=== PATIENT | male | born 1950 | race Caucasian/White ===

== ENCOUNTER → 2016-12-11 | Outpatient (CLI) | payer OTHER ==
[~2016-12-11] MED LIST: ACYC400T PO; ALLO300 PO; DIATRIZOATE MEGLUM/DIATRIZOATE SOD 120 ML BTL (for RAD DIAG) RECTAL ONE; FURO20 PO; HYDR-4197; ONDA4 PO; PROT40TA PO; SENN187 PO; TRAM50 PO; VENTAER INH; WALKER ROLLING; [UNRECOGNIZED DRUG - CODE] PO
--- NOTE | 2016-12-11 11:43 | RADRPT ---
EXAM DATE/TIME: 12/11/2016 10:52 [facility] COMPARISON: No previous studies available for comparison. INDICATIONS : Fecal impaction. FLUORO TIME: 0.5 minutes IMAGE COUNT: 7 CONTRAST: 1. [facility] MEDICAL HISTORY : Hirschsprungs disease. SURGICAL HISTORY : Loop Colostomy. Colon resection. ENCOUNTER: Initial ACUITY: 7 - 11 months PAIN SCORE: 0/10 LOCATION: Bilateral abdomen. FINDINGS: Preliminary film is unremarkable except for extensive stool and colostomy site is seen on the left. Under fluoroscopic guidance a Gastrografin enema was performed with free flow of contrast to the colo stomy site on the left side and back filled with contrast. There is extensive stool in the patient's colon. CONCLUSION: Therapeutic Gastrografin enema. Jesus Peña MD on December 11, 2016 at 11:40 Board Certified Radiologist. This report was verified electronically.
== END ==
LOC: HRAD 10:25
PROVIDERS: ATTEND Colon & Rectal Surgery
DX: K56.49 Other impaction of intestine (principal)
CPT/HCPCS: 74270; Q9963

== ENCOUNTER → 2017-01-09 | Day surgery (SDC) | payer OTHER ==
[~2017-01-09] VITALS: Ht 190.5 cm; Wt 70.6 kg
[~2017-01-09] MED LIST changes: +*morphine SULFATE 8 MG/ML PERIprocedure ONLY ONE; -ACYC400T PO; -ALLO300 PO; +CHLORHEXIDINE GLUCONATE 2 % 1 PACK (2 CLOTHS) TOPICAL PRN; -DIATRIZOATE MEGLUM/DIATRIZOATE SOD 120 ML BTL (for RAD DIAG) RECTAL ONE; +DO NOT ADM ANY ANTICOAGULANT DRUGS PRN; -FURO20 PO; -HYDR-4197; +INSULIN HUMAN REGULAR 1,000 UNITS/10 ML VIAL SQ PRN; +LACTATED RINGER'S 1000 ML IV PRN; +METOPROLOL TARTRATE 25 MG TAB PO PRN; +MIDAZOLAM HCL 2 MG/2 ML VIAL ONE; -ONDA4 PO; +POVIDONE IODINE 5% (ANTISEPSIS KIT) 4 APPLICATIONS EACH NARE PRN; +PROPOFOL 200 MG/20 ML AMP IV ONE; -PROT40TA PO; -SENN187 PO; +SODIUM CHLORID 0.9% 500 ML IV PRN; -TRAM50 PO; +TRAM50TA PO; +TYLE325T PO; +TYLENOL PM PO; -VENTAER INH; -WALKER ROLLING; -[UNRECOGNIZED DRUG - CODE] PO
[2017-01-09 12:11] VITALS: BP 108/67; PULSE 73; RESP 18; TEMP 98.4; O2SAT 98
[2017-01-09 12:41] LABS: AUTOMATED NEUTROPHIL # 5.7 TH/MM3 (1.8-7.7); BASOPHIL # 0.1 TH/MM3 (0-0.2); BASOPHIL % 0.7 % (0.0-2.0); EOSINOPHIL # 0.2 TH/MM3 (0-0.4); EOSINOPHIL % 3.2 % (0.0-4.0); HEMATOCRIT 40.3 % (39.0-51.0); HEMO FLAGS DIFF FINAL; LYMPHOCYTE # 0.9 TH/MM3 (1.0-4.8); MEAN CELL VOLUME 87.3 FL (80.0-100.0); MEAN CORPUSCULAR HEMOGLOBIN 28.6 PG (27.0-34.0); MEAN CORPUSCULAR HGB CONC 32.7 % (32.0-36.0); MONO % 6.1 % (0.0-8.0); PLATELET COUNT 250 TH/MM3 (150-450); RED BLOOD COUNT 4.62 MIL/MM3 (4.50-5.90); RED CELL DISTRIBUTION WIDTH 16.3 % (11.6-17.2); WHITE BLOOD COUNT 7.3 TH/MM3 (4.0-11.0)
--- NOTE | 2017-01-09 13:28 | PD.HP.UP ---
H&P Update Note The Pre-Admit History and Physical Examination regarding the above named patient was reviewed (including, but not limited to, vital signs, heart, lungs, co-morbid conditions), and upon re-examination it is noted that: the patient's condition has not significantly changed since the last examination. Ghassan Glover MD Jan 09, 2017 13:28
--- NOTE | 2017-01-09 15:22 | EKG ---
Date Performed: 01/09/2017 Time Performed: 11:51:46 PTAGE: 66 years EKG: Sinus rhythm WITH SINUS ARRHYTHMIA Compared to previous tracing, the 2:1 AV block has resolved NORMAL ECG PREVIOUS TRACING : 06/09/2015 10.25 DOCTOR: Dakota Delgado Interpretating Date/Time 01/09/2017 15:20:34
[2017-01-09 16:11] VITALS: BP 105/67; PULSE 66; RESP 24; TEMP 97; O2SAT 99
--- NOTE | 2017-01-11 18:40 | MP ---
cc: SHAYNE GLOVER M.D. DATE OF SURGERY: 01/09/2017. PREOPERATIVE DIAGNOSIS: Fecal impaction POSTOPERATIVE DIAGNOSIS: Fecal impaction. OPERATIVE PROCEDURE PERFORMED: 1. Disimpaction. 2. Flexible sigmoidoscopy. SURGEON: Shayne Glover M.D. ANESTHESIA: Monitored anesthesia care. OPERATIVE FINDINGS: This patient developed a fecal impaction about a year ago after receiving chemotherapy. His case is complicated by the fact that he had Hirschsprung's disease at a young age, and at age 18 underwent Duhamel procedure at the [facility] by Dr. Michael Agudelo. When he developed a fecal impaction, there was a blind limb to his pouch, which became fecally impacted and could not be dislodged with enemas. He was referred to the [facility] who did a loop sigmoid colostomy but never really disimpacted him. He is now back to me for the second time for disimpaction. I was able to get half of the stool out about two weeks ago and today I was able to get the remainder of the stool out. DESCRIPTION OF THE PROCEDURE IN DETAIL: The patient was placed on table in the supine position. After adequate monitored anesthesia care, the area was lubricated and fecal impaction was palpated. It was quite a large hard inspissated ball of stool. I was able to break it up with the Yankauer suction tip for the most part and then scoop it out with a spoon-shaped instrument and after lengthy disimpaction, was able to finally irrigate the remainder of the stool out with saline solution. A flexible sigmoidoscopy was done showing the pouch and there was no obvious trauma or injury to the rectal pouch and I could not advance the scope up into the more proximal colon mainly because he could not hold air as the air went up into his colostomy bag and also out the anus. I know that the connection between the colostomy and the rectum are intact because of the air and the enema fluid has passed through this area previously. At termination of procedure, the patient left the operating room in good condition and I will follow him up in the office and eventually close his colostomy. MD OPAL Hernadez/JAIME /2:55 PM /6:31 PM
== END | disposition home or self-care (01) ==
LOC: HSDC 11:26
PROVIDERS: ATTEND Colon & Rectal Surgery
DX: K56.41 Fecal impaction (principal); Q43.1 Hirschsprung's disease; M54.2 Cervicalgia; M54.9 Dorsalgia, unspecified; F17.290 Nicotine dependence, other tobacco product, uncomplicated; Z93.3 Colostomy status; Z01.810 Encounter for preprocedural cardiovascular examination; Z86.718 Personal history of other venous thrombosis and embolism; Z85.72 Personal history of non-Hodgkin lymphomas; Z92.21 Personal history of antineoplastic chemotherapy; Z79.891 Long term (current) use of opiate analgesic
CPT/HCPCS: 00902; 45330; 45915; 85025; 93005; J2250; J2270; J3010; J7120

== ENCOUNTER → 2017-02-13 | Outpatient (CLI) | payer OTHER ==
[~2017-02-13] MED LIST changes: -*morphine SULFATE 8 MG/ML PERIprocedure ONLY ONE; -CHLORHEXIDINE GLUCONATE 2 % 1 PACK (2 CLOTHS) TOPICAL PRN; -DO NOT ADM ANY ANTICOAGULANT DRUGS PRN; -INSULIN HUMAN REGULAR 1,000 UNITS/10 ML VIAL SQ PRN; -LACTATED RINGER'S 1000 ML IV PRN; -METOPROLOL TARTRATE 25 MG TAB PO PRN; -MIDAZOLAM HCL 2 MG/2 ML VIAL ONE; -POVIDONE IODINE 5% (ANTISEPSIS KIT) 4 APPLICATIONS EACH NARE PRN; -PROPOFOL 200 MG/20 ML AMP IV ONE; -SODIUM CHLORID 0.9% 500 ML IV PRN; -TYLE325T PO
--- NOTE | 2017-02-16 16:03 | RADRPT ---
EXAM DATE/TIME: 02/13/2017 12:01 [facility] COMPARISON: CT THORAX W CONTRAST, June 06, 2015, 23:02. INDICATIONS : Evaluate for penumonia, pneumothorax, or commnicable disease. Pre op for colostomy reversal. MEDICAL HISTORY : Gastroesophageal reflux disease. Shingles. Lymphoma. UTI. Chemotherapy. SURGICAL HISTORY : Colostomy. Cholecystectomy. Kyphoplasty. Rotator cuff. Bowel resection. ENCOUNTER: Initial ACUITY: 1 day PAIN SCORE: 0/10 LOCATION: chest FINDINGS: Frontal and lateral views of the chest demonstrate a normal-sized cardiac silhouette. Left chest wall [id number]-[id number] is present with distal tip in the superior vena cava. The lungs are hyperinflated with a large retrosternal airspace. No pleural effusion, airspace consolidation, or pneumothorax is ident ified. Bones and soft tissues demonstrate no acute finding. There are degenerative changes of the tho racic spine and there has been prior kyphoplasty. CONCLUSION: No acute cardiopulmonary abnormality is identified. Background lung changes are characteristic of obs tructive airways disease/emphysema. Ghassan Marshall MD on February 16, 2017 at 15:59 Board Certified Radiologist. This report was verified electronically.
== END ==
LOC: CPRE 10:24
PROVIDERS: ATTEND Colon & Rectal Surgery
DX: Z01.811 Encounter for preprocedural respiratory examination (principal); K94.09 Other complications of colostomy
CPT/HCPCS: 71020

== ENCOUNTER 2017-02-17 11:18 | Inpatient (IN) | payer OTHER, MEDICARE ==
[~2017-02-17] VITALS: Ht 190.5 cm; Wt 72.5 kg
[2017-02-17] VITALS (7 sets, daily range): BP systolic 113–149; BP diastolic 56–62; PULSE 72–91; RESP 16–18; TEMP 98–98.8; O2SAT 94–96
[2017-02-17] MEDS ORDERED: NEOSTIGMINE 3 MG/3 ML SYR IV ONE (12:00)
[2017-02-17] MEDS ORDERED: PROPOFOL 200 MG/20 ML AMP IV ONE (12:00)
[2017-02-17] MEDS ORDERED: MIDAZOLAM HCL 2 MG/2 ML VIAL IV ONE (12:00)
[2017-02-17] MEDS ORDERED: ROCURONIUM INJ 50 MG/5 ML SYRINGE IV PUSH ONE (12:00)
[2017-02-17] MEDS ORDERED: ONDANSETRON HCL 4 MG/2 ML VIAL IV PUSH ONE (12:00)
[2017-02-17] MEDS ORDERED: GLYCOPYRROLATE 1 MG/5 ML SYRINGE IV PUSH ONE (12:00)
[2017-02-17] MEDS ORDERED: LIDOCAINE HCL 1% PF 5 ML AMPULE OTHER ONE (12:00)
[2017-02-17] MEDS: LACTATED RINGER'S 1000 ML IV PRN (12:15)
[2017-02-17] MEDS ORDERED: ceFAZolin INJ 1,000 MG VIAL ONE (12:28)
[2017-02-17] MEDS ORDERED: ALVIMOPAN 12 MG CAPSULE ONE (12:28)
[2017-02-17] MEDS ORDERED: SODIUM CHLORIDE 0.9% INJ 100 ML ONE (12:28)
[2017-02-17] MEDS ORDERED: metroNIDAZOLE 500 MG INJ 100 ML IV ONE (12:28)
[2017-02-17] MEDS ORDERED: CHLORHEXIDINE GLUCONATE 2 % 1 PACK (2 CLOTHS) TOPICAL PRN (12:30)
[2017-02-17] MEDS ORDERED: POVIDONE IODINE 5% (ANTISEPSIS KIT) 4 APPLICATIONS EACH NARE PRN (12:30)
[2017-02-17] MEDS ORDERED: METOPROLOL TARTRATE 25 MG TAB PO PRN (12:30)
[2017-02-17] MEDS ORDERED: INSULIN HUMAN REGULAR 1,000 UNITS/10 ML VIAL SQ PRN (12:30)
[2017-02-17] MEDS ORDERED: SODIUM CHLORID 0.9% 500 ML IV PRN (12:30)
[2017-02-17] MEDS: ceFAZolin 1,000 MG/NS 100 ML IV SCH ×4 (12:30→12:46)
[2017-02-17] MEDS: METRONIDAZOLE 500 MG/100 ML ISONTONIC SOLN IV SCH ×2 (12:45→12:46)
[2017-02-17] MEDS ORDERED: ALVIMOPAN 12 MG CAPSULE - On Call PO SCH (12:45)
[2017-02-17] MEDS ORDERED: DEXT 5%-NACL 0.9% 1000 ML INJ 1,000 ML IV SCH (13:00)
--- NOTE | 2017-02-17 13:01 | PD.HP.UP ---
H&P Update Note The Pre-Admit History and Physical Examination regarding the above named patient was reviewed (including, but not limited to, vital signs, heart, lungs, co-morbid conditions), and upon re-examination it is noted that: the patient's condition has not significantly changed since the last examination. Ghassan Glover MD Feb 17, 2017 13:01
[2017-02-17] MEDS ORDERED: FAMOTIDINE 20 MG/2 ML VIAL ONE (13:30)
[2017-02-17] MEDS ORDERED: MIDAZOLAM HCL 2 MG/2 ML VIAL ONE (13:30)
[2017-02-17] MEDS ORDERED: ACETAMINOPHEN 1000 MG/100 ML 100 ML IV ONE (13:30)
[2017-02-17] MEDS ORDERED: ZOLPIDEM TARTRATE 5 MG TAB PO PRN (16:00)
[2017-02-17] MEDS ORDERED: DO NOT ADM ANY ANTICOAGULANT DRUGS PRN (16:00)
[2017-02-17] MEDS ORDERED: BENZOCAINE 6 MG/MENTHOL 10 MG LOZENGE BUCCAL PRN (16:00)
[2017-02-17] MEDS ORDERED: POTASSIUM CHLOR 20 MEQ PREMIX 100 ML IV PRN (16:00)
[2017-02-17] MEDS ORDERED: POTASSIUM CHLOR 40 MEQ PREMIX 100 ML IV PRN (16:00)
[2017-02-17] MEDS ORDERED: ACETAMINOPHEN/HYDROcodone 325 MG/5 MG TAB PO PRN (16:00)
[2017-02-17] MEDS ORDERED: SODIUM CHLORIDE 0.9% FLUSH 10 ML FLUSH IV FLUSH PRN (16:00)
[2017-02-17] MEDS ORDERED: ENALAPRILAT 1.25 MG/ML VIAL IV PRN (16:00)
[2017-02-17] MEDS ORDERED: NALOXONE HCL 0.4 MG/ML AMP IV PUSH PRN (16:00)
[2017-02-17] MEDS ORDERED: KETOROLAC TROMETHAMINE 30 MG/ML (IVP) VIAL IVP PRN (16:00)
[2017-02-17] MEDS ORDERED: Post-op Orders (for Pharmacy) MISC XX ONE (16:00)
[2017-02-17] MEDS ORDERED: *MEPERIDINE 25 MG INJ VIAL PERIprocedural Use ONLY ONE (16:04)
[2017-02-17] MEDS ORDERED: *morphine SULFATE 8 MG/ML PERIprocedure ONLY ONE ×2 (16:14→16:30)
[2017-02-17] MEDS ORDERED: *ONDANSETRON 4 MG VIAL PERIprocedural Use ONLY ONE (16:18)
[2017-02-17 16:31] LABS: AUTOMATED NEUTROPHIL # 13.8 TH/MM3 (1.8-7.7); BASOPHIL # 0.1 TH/MM3 (0-0.2); BASOPHIL % 0.4 % (0.0-2.0); EOSINOPHIL # 0.1 TH/MM3 (0-0.4); EOSINOPHIL % 0.4 % (0.0-4.0); HEMATOCRIT 43.7 % (39.0-51.0); HEMO FLAGS DIFF FINAL; LYMPHOCYTE # 1.3 TH/MM3 (1.0-4.8); MEAN CELL VOLUME 89.6 FL (80.0-100.0); MEAN CORPUSCULAR HEMOGLOBIN 28.1 PG (27.0-34.0); MEAN CORPUSCULAR HGB CONC 31.4 % (32.0-36.0); MONO % 4.4 % (0.0-8.0); NEUT % 86.8 % (16.0-70.0); PLATELET COUNT 251 TH/MM3 (150-450); RED BLOOD COUNT 4.88 MIL/MM3 (4.50-5.90); WHITE BLOOD COUNT 15.9 TH/MM3 (4.0-11.0)
[2017-02-17 17:00] LABS: BICARBONATE 23.1 MEQ/L (21.0-32.0); POTASSIUM 3.8 MEQ/L (3.5-5.1)
[2017-02-17] MEDS ORDERED: *PROMETHAZINE 25 MG/ML VIAL PERIprocedural use ONLY ONE (17:02)
[2017-02-17] MEDS: D5-LR + KCL 20 MEQ INJ 1,000 ML IV SCH ×2 (17:37→22:13)
[2017-02-17] MEDS: MORPHINE SULFATE 30 MG/30 ML PCA IV SCH (17:39)
[2017-02-17] MEDS: METOCLOPRAMIDE HCL 10 MG/2 ML VIAL IVS SCH ×2 (18:00→23:13)
[2017-02-17] MEDS: FUROSEMIDE 20 MG/2 ML VIAL IV SCH (20:17)
[2017-02-17] MEDS: metroNIDAZOLE 500 MG INJ 100 ML IV SCH (20:17)
[2017-02-17] MEDS: SODIUM CHLORIDE 0.9% FLUSH 10 ML FLUSH IV FLUSH SCH (20:17)
[2017-02-17] MEDS: PCA - TOTAL MG MORPHINE DELIVERED PER SHIFT SCH (21:36)
[2017-02-18] VITALS (18 sets, daily range): BP systolic 94–113; BP diastolic 48–59; PULSE 66–82; RESP 16–18; TEMP 97.8–99.3; O2SAT 91–96
[2017-02-18] MEDS: D5-LR + KCL 20 MEQ INJ 1,000 ML IV SCH ×4 (03:01→20:53)
[2017-02-18] MEDS: metroNIDAZOLE 500 MG INJ 100 ML IV SCH ×2 (04:19→12:18)
[2017-02-18] MEDS: MORPHINE SULFATE 30 MG/30 ML PCA IV SCH (05:20)
[2017-02-18] MEDS: METOCLOPRAMIDE HCL 10 MG/2 ML VIAL IVS SCH ×4 (05:23→23:47)
[2017-02-18] MEDS: PCA - TOTAL MG MORPHINE DELIVERED PER SHIFT SCH ×3 (05:43→20:53)
[2017-02-18 06:56] LABS: AUTOMATED NEUTROPHIL # 9.2 TH/MM3 (1.8-7.7); BASOPHIL % 0.4 % (0.0-2.0); EOSINOPHIL % 0.1 % (0.0-4.0); HEMATOCRIT 37.5 % (39.0-51.0); HEMO FLAGS DIFF FINAL; LYMPH % 6.3 % (9.0-44.0); LYMPHOCYTE # 0.7 TH/MM3 (1.0-4.8); MEAN CELL VOLUME 87.5 FL (80.0-100.0); MEAN CORPUSCULAR HEMOGLOBIN 28.9 PG (27.0-34.0); MONO % 7.7 % (0.0-8.0); NEUT % 85.5 % (16.0-70.0); PLATELET COUNT 197 TH/MM3 (150-450); RED BLOOD COUNT 4.29 MIL/MM3 (4.50-5.90); RED CELL DISTRIBUTION WIDTH 15.1 % (11.6-17.2); WHITE BLOOD COUNT 10.8 TH/MM3 (4.0-11.0)
[2017-02-18 07:11] LABS: BICARBONATE 26.4 MEQ/L (21.0-32.0)
--- NOTE | 2017-02-18 08:53 | HHI.PR ---
Subjective Remarks No N or V. No BMs. Urine clearer. Objective Vital Signs Date Time Temp Pulse Resp B/P (MAP) Pulse Ox O2 Delivery O2 Flow Rate FiO2 02/18/17 08:03 97.8 76 18 102/48 (66) 95 02/18/17 08:00 77 02/18/17 07:00 75 02/18/17 06:05 16 02/18/17 06:00 79 02/18/17 05:43 16 02/18/17 05:20 16 02/18/17 05:00 76 02/18/17 04:00 78 02/18/17 03:00 78 02/18/17 03:00 99.3 82 16 113/53 (73) 96 02/18/17 02:00 80 02/18/17 01:00 80 02/18/17 00:00 79 02/17/17 23:05 98.8 81 16 113/56 (75) 96 02/17/17 23:00 75 02/17/17 22:00 16 02/17/17 22:00 75 02/17/17 21:36 16 02/17/17 21:00 80 02/17/17 20:00 98.7 84 16 125/57 (79) 96 02/17/17 20:00 82 02/17/17 19:00 72 02/17/17 18:34 18 02/17/17 18:29 98.0 91 18 149/62 (91) 94 02/17/17 18:00 72 13 133/61 (85) 98 Room Air 02/17/17 17:39 22 02/17/17 17:30 69 22 130/56 (80) 98 Room Air 02/17/17 17:00 66 15 121/58 (79) 98 Room Air 02/17/17 16:45 62 14 137/64 (88) 99 Room Air 02/17/17 16:30 64 15 126/58 (80) 99 Room Air 02/17/17 16:15 66 15 111/55 (73) 99 Room Air 02/17/17 16:00 98.1 67 17 153/63 (93) 100 Room Air I/O 02/17/17 02/17/17 02/17/17 02/18/17 02/18/17 02/18/17 07:00 15:00 23:00 07:00 15:00 23:00 Intake Total 100 ml 1406 ml 2088 ml Output Total 250 ml 1400 ml Balance 100 ml 1156 ml 688 ml Intake Oral 0 ml IV Total 100 ml 506 ml 2088 ml Other 900 ml Output Urine Total 200 ml 1400 ml Estimated Blood Loss 50 ml # Bowel Movements 0 Result Diagram: 02/18/1762402/18/17624 Objective Remarks VS-S Abd: flat,soft,dressings dry I&Os and Labs-OK Assessment and Plan Assessment and Plan Stable POD#1 Transfer, ambulate CLD Ghassan Glover MD Feb 18, 2017 08:53
[2017-02-18] MEDS ORDERED: ALVIMOPAN 12 MG CAPSULE - Post-op dosing PO SCH (09:00)
[2017-02-18] MEDS: ALVIMOPAN 12 MG CAPSULE PO SCH ×2 (09:18→20:51)
[2017-02-18] MEDS: FUROSEMIDE 20 MG/2 ML VIAL IV SCH ×2 (09:18→20:52)
[2017-02-18] MEDS: SODIUM CHLORIDE 0.9% FLUSH 10 ML FLUSH IV FLUSH SCH ×2 (09:20→20:52)
[2017-02-18] MEDS: PANTOPRAZOLE SODIUM 40 MG VIAL IVP SCH (09:20)
--- NOTE | 2017-02-18 09:35 | MP ---
cc: SHAYNE GLOVER M.D., ELIZABETH M. MD DATE OF SURGERY: 02/17/2017 PREOPERATIVE DIAGNOSIS Sigmoid loop colostomy. POSTOPERATIVE DIAGNOSIS Sigmoid loop colostomy. PROCEDURE 1. Partial sigmoid resection with closure of sigmoid loop colostomy. 2. Disimpaction of rectum. 3. Mobilization of the splenic flexure. SURGEON Dr. Glover. COMPUTATIONAL PHYSICIST SURGEON Dr. Lozano. ESTIMATED BLOOD LOSS 50 cc. OPERATIVE FINDINGS This patient has a complex history. Approximately 50 years ago he was diagnosed with Hirschsprung's disease at the age of 18 and underwent a Duhamel procedure by Dr. Michael Agudelo at the [facility]. Since that time he had done well and his constipation was well-controlled. 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 When he became impacted it was impossible for him to be disimpacted and he was sent to the [facility] and they did a laparoscopic colostomy thinking that he would be able to be disimpacted; however, with this Duhamel pouch in his pelvis they were unable to clean him out. That was done in June 2016. He now comes to me for closure of his colostomy and disimpaction. I disimpacted him a couple of times of all the hard fecal material and then of all the soft fecal material today. A bowel prep had been done prior to this and then the loop sigmoid colostomy was taken down and the colostomy was closed with a functional end-to-end HARPREET anastomosis. Exploration of the abdominal cavity revealed that the liver was palpably normal as was the remainder of the colon. However, the small bowel was abnormal and at the terminal ileum region appeared to have fat wrapping and thickening and Crohn's disease. There was no obstruction there and there was no chronic obstruction seen. There seemed to be 2-3 areas of skip areas several centimeters in length each with the terminal ileum spared just above an area of handsewn anastomosis. The remainder of the colon as I said was palpably normal. I did mobilize the bladder up off of the Duhamel pouch and sigmoid colon and I was able to palpate the pouch but I did not expose it fully so that I did not injure it. Dr. Lozano did irrigations of the rectum and the pouch from below with two liters of saline solution and all the stool that was left over in the pouch was squeezed out. OPERATIVE TECHNIQUE The patient was placed on the table in the supine position. After adequate general endotracheal anesthesia the legs were placed in the perineal lithotomy position. The abdomen and perineum were prepped and draped in the usual manner. A midline incision was made in his previous midline from the pubis up to above the umbilicus and carried down through the linea alba and the peritoneal cavity was entered with the above-mentioned findings. There was not much in the way of adhesions except some omentum and this was easily mobilized from the anterior abdominal wall. The bladder was mobilized up off of the sigmoid and the Duhamel pouch and I was able to palpate the pouch fully. Dr. Lozano then went below and irrigated the pouch with a bulb syringe using two liters of saline solution, fully washing out the pouch of all the stool left over. Next, the sigmoid colon was mobilized. An elliptical incision was made transversely around the stoma site and it was taken down from the abdominal wall. None of the sigmoid vessels were divided and the sigmoid was divided proximal and distal to the stoma with an Ethicon HARPREET-55 stapling device. Next, the anastomosis was carried out along the antimesenteric border of the sigmoid colon using an Ethicon HARPREET stapling device and then two seromuscular sutures were placed and then the appendices epiploicae were sutured to each other to take any tension off the apex of the anastomosis. The small opening in the mesentery was approximated with a running 3-0 Vicryl suture. It should be mentioned that the full sigmoid and descending colon was mobilized as was the splenic flexure to allow enough length for closure. We again looked at the terminal ileum and decided to leave it since it was not obstructed nor chronically obstructed. It did, however, appear to be Crohn's disease. It did not appear to be lymphoma. The abdominal cavity was then irrigated thoroughly with a liter of saline solution and aspirated dry. Hemostasis was maintained throughout with electrocautery. The bowels were replaced in the abdominal cavity in an final rail cutter manner. The abdominal cavity was then closed after mobilizing the midline fascia from the subcutaneous tissue with electrocautery. It should be mentioned that the stoma site was closed in two layers using a single stranded #1 PDS and the midline was closed with a double-stranded #1 PDS in a simple running manner. Once this was done the subcutaneous tissue was irrigated thoroughly with a liter of saline solution and the skin was closed with skin lenore. Because of the takedown of the colostomy subcuticular suture was not used. Dressing was applied. Sponge, needle and instrument counts were reported as correct. The estimated blood loss was 50 cc. The patient tolerated the procedure well and left the operating room in good condition. MD OPAL Hernadez/BROOKE /4:10 PM /9:08 AM
[2017-02-19 00:35] VITALS: BP 112/58; PULSE 67; RESP 18; TEMP 99.2; O2SAT 93
[2017-02-19 04:00] VITALS: BP 116/57; PULSE 80; RESP 17; TEMP 99.3; O2SAT 94
[2017-02-19 04:49] LABS: AUTOMATED NEUTROPHIL # 7.4 TH/MM3 (1.8-7.7); BASOPHIL # 0.1 TH/MM3 (0-0.2); BASOPHIL % 0.9 % (0.0-2.0); EOSINOPHIL # 0.1 TH/MM3 (0-0.4); EOSINOPHIL % 0.8 % (0.0-4.0); HEMO FLAGS DIFF FINAL; LYMPH % 9.4 % (9.0-44.0); LYMPHOCYTE # 0.9 TH/MM3 (1.0-4.8); MEAN CORPUSCULAR HEMOGLOBIN 28.2 PG (27.0-34.0); MONO % 7.9 % (0.0-8.0); PLATELET COUNT 176 TH/MM3 (150-450); RED BLOOD COUNT 4.21 MIL/MM3 (4.50-5.90); RED CELL DISTRIBUTION WIDTH 15.6 % (11.6-17.2); WHITE BLOOD COUNT 9.1 TH/MM3 (4.0-11.0)
[2017-02-19 05:12] LABS: BICARBONATE 24.8 MEQ/L (21.0-32.0); POTASSIUM 4.1 MEQ/L (3.5-5.1)
[2017-02-19] MEDS: PCA - TOTAL MG MORPHINE DELIVERED PER SHIFT SCH ×2 (06:00→14:00)
[2017-02-19] MEDS: METOCLOPRAMIDE HCL 10 MG/2 ML VIAL IVS SCH ×3 (06:08→17:14)
[2017-02-19 08:00] VITALS: BP 122/61; PULSE 68; RESP 18; TEMP 99.2; O2SAT 95
[2017-02-19] MEDS: SODIUM CHLORIDE 0.9% FLUSH 10 ML FLUSH IV FLUSH SCH ×2 (09:00→21:15)
[2017-02-19] MEDS: D5-LR + KCL 20 MEQ INJ 1,000 ML IV SCH (09:21)
[2017-02-19] MEDS: ALVIMOPAN 12 MG CAPSULE PO SCH ×2 (09:21→21:13)
[2017-02-19] MEDS: FUROSEMIDE 20 MG/2 ML VIAL IV SCH ×2 (09:21→21:14)
[2017-02-19] MEDS: PANTOPRAZOLE SODIUM 40 MG VIAL IVP SCH (09:28)
[2017-02-19] MEDS ORDERED: INFLUENZA VIRUS VACCINE (QUADRIVALENT) 0.5 ML SYR IM ONE (10:00)
[2017-02-19] MEDS ORDERED: PNEUMOCOCCAL POLYVALENT INJ 25 MCG/0.5 ML SYR IM ONE (10:00)
[2017-02-19] MEDS: ACETAMINOPHEN/HYDROcodone 325 MG/5 MG TAB PO PRN ×2 (11:23→17:13)
[2017-02-19 12:00] VITALS: BP 112/60; PULSE 78; RESP 18; TEMP 98.9; O2SAT 95
[2017-02-19 16:00] VITALS: BP 112/62; PULSE 74; RESP 18; TEMP 98.1; O2SAT 95
[2017-02-19] MEDS ORDERED: oxyCODONE/ACETAMINOPHEN 5 MG/325 MG TAB PO PRN (17:45)
--- NOTE | 2017-02-19 17:50 | HHI.PR ---
Subjective Remarks No N or V. No BMs. Urine clearer. Baker removed. Hematuria likely due to known bladder tumor Objective Vital Signs Date Time Temp Pulse Resp B/P (MAP) Pulse Ox O2 Delivery O2 Flow Rate FiO2 02/19/17 16:00 98.1 74 18 112/62 (79) 95 02/19/17 12:00 98.9 78 18 112/60 (77) 95 02/19/17 08:00 99.2 68 18 122/61 (81) 95 02/19/17 06:00 18 02/19/17 04:00 99.3 80 17 116/57 (76) 94 02/19/17 00:35 99.2 67 18 112/58 (76) 93 02/18/17 20:53 18 02/18/17 20:35 99.3 67 17 103/59 (74) 96 I/O 02/18/17 02/18/17 02/18/17 02/19/17 02/19/17 02/19/17 07:00 15:00 23:00 07:00 15:00 23:00 Intake Total 2088 ml 1220 ml 380 ml 1000 ml Output Total 1400 ml 0 ml 1000 ml 500 ml Balance 688 ml 1220 ml -620 ml -500 ml 1000 ml Intake Oral 0 ml 120 ml 380 ml IV Total 2088 ml 1100 ml 1000 ml Output Urine Total 1400 ml 0 ml 1000 ml 500 ml # Voids 0 # Bowel Movements 0 0 Result Diagram: 02/19/1733202/19/17332 Objective Remarks VS-S Abd: flat,soft,dressings removed I&Os and Labs-OK Assessment and Plan Assessment and Plan Stable POD#2 Pt still has not ambulated, will reorder today, Ghassan Miller MD Feb 19, 2017 17:50
[2017-02-19 20:00] VITALS: BP 136/65; PULSE 80; RESP 20; TEMP 99; O2SAT 95
[2017-02-19] MEDS: oxyCODONE/ACETAMINOPHEN 10 MG/325 MG TAB PO PRN (21:14)
[2017-02-20] VITALS: BP 126/66; PULSE 75; RESP 20; TEMP 99.1; O2SAT 95
[2017-02-20] MEDS: METOCLOPRAMIDE HCL 10 MG/2 ML VIAL IVS SCH ×2 (00:16→05:48)
[2017-02-20] MEDS: oxyCODONE/ACETAMINOPHEN 10 MG/325 MG TAB PO PRN ×2 (03:45→20:20)
[2017-02-20] MEDS: D5-LR + KCL 20 MEQ INJ 1,000 ML IV SCH ×2 (05:50→23:07)
[2017-02-20 08:00] VITALS: BP 129/71; PULSE 102; RESP 20; TEMP 99.3; O2SAT 95
[2017-02-20] MEDS: PANTOPRAZOLE SODIUM 40 MG VIAL IVP SCH (08:30)
[2017-02-20] MEDS: ONDANSETRON HCL 4 MG/2 ML VIAL IV PRN ×2 (08:30→16:25)
[2017-02-20] MEDS: FUROSEMIDE 20 MG/2 ML VIAL IV SCH (08:30)
[2017-02-20] MEDS: ALVIMOPAN 12 MG CAPSULE PO SCH ×2 (08:35→20:21)
[2017-02-20] MEDS: SODIUM CHLORIDE 0.9% FLUSH 10 ML FLUSH IV FLUSH SCH ×2 (09:00→20:21)
[2017-02-20 12:00] VITALS: BP 112/60; PULSE 88; RESP 17; TEMP 98.5; O2SAT 96
[2017-02-20 16:00] VITALS: BP 123/67; PULSE 92; RESP 19; TEMP 99.3; O2SAT 95
[2017-02-20 20:00] VITALS: BP 113/64; PULSE 88; RESP 17; TEMP 99.2; O2SAT 94
[2017-02-20] MEDS: METOCLOPRAMIDE HCL 10 MG/2 ML VIAL IVS PRN (20:21)
--- NOTE | 2017-02-20 20:31 | HHI.PR ---
Subjective Remarks C/R Surg POD # 3 afebrile, VSS UO good emely little PO No BM Objective - Vital Signs Date Time Temp Pulse Resp B/P (MAP) Pulse Ox O2 Delivery O2 Flow Rate FiO2 02/20/17 16:00 99.3 92 19 123/67 (85) 95 02/17/17 18:00 Room Air Result Diagram: 02/19/17 0333 02/19/17 033 Objective Remarks PE alert Abd - soft, wound dry, min tympany A/P Assessment and Plan Imp: some nausea slow PO OOB decr narcotics Jayjay Lozano MD Feb 20, 2017 20:31
[2017-02-21] MEDS: ONDANSETRON HCL 4 MG/2 ML VIAL IV PRN ×2 (00:02→06:50)
[2017-02-21 00:37] VITALS: BP 136/70; PULSE 104; RESP 17; TEMP 96.6; O2SAT 92
[2017-02-21] MEDS: METOCLOPRAMIDE HCL 10 MG/2 ML VIAL IVS PRN (03:23)
[2017-02-21 08:00] VITALS: BP 118/67; PULSE 78; RESP 14; TEMP 98.6; O2SAT 94
[2017-02-21] MEDS: SODIUM CHLORIDE 0.9% FLUSH 10 ML FLUSH IV FLUSH SCH ×2 (09:00→19:53)
[2017-02-21] MEDS: ALVIMOPAN 12 MG CAPSULE PO SCH ×2 (09:00→19:52)
[2017-02-21] MEDS: PANTOPRAZOLE SODIUM 40 MG VIAL IVP SCH (09:00)
--- NOTE | 2017-02-21 09:40 | RADRPT ---
EXAM DATE/TIME: 02/21/2017 09:21 [facility] COMPARISON: GASTROGRAFIN ENEMA, December 11, 2016, 10:52. INDICATIONS : Vomiting and abdominal pain. MEDICAL HISTORY : Gastroesophageal reflux disease. Shingles. Lymphoma. UTI. Chemotherapy. SURGICAL HISTORY : Colostomy. Cholecystectomy. Kyphoplasty. Rotator cuff. Bowel resection. ENCOUNTER: Subsequent ACUITY: 3 days PAIN SCORE: 5/10 LOCATION: Abdomen FINDINGS: Supine and upright views of the abdomen demonstrate mildly air distended colon in a nonobstructive pa ttern. Additionally, there is distended small bowel in the left upper quadrant. Upright image demonst rates air-fluid levels within the colon and in the small bowel segment in the left upper quadrant. Th ere is free intraperitoneal air beneath both hemidiaphragms. Skin lenore overlie the abdomen on the midline left lower quadrant. Cholecystectomy clips are present. Bowel staple line is visualized in th e left abdomen. Nasogastric tube distal tip is in the stomach. There is atelectasis at the left lung base. CONCLUSION: 1. Free intraperitoneal air. Skin lenore indicate recent surgery. Suggest correlation with the clini vidya history to determine when the surgery was performed. 2. Mildly distended colon and segmental dilated small bowel in the left upper quadrant. These distend ed segments demonstrate air-fluid levels. The pattern is not typical for obstruction so this could re present ileus. Suggest followup imaging to confirm resolution. Ghassan Marshall MD on February 21, 2017 at 9:35 Board Certified Radiologist. This report was verified electronically.
[2017-02-21] MEDS ORDERED: SODIUM CHLOR 0.9% 1000 ML INJ 1,000 ML IV ONE (10:00)
[2017-02-21] MEDS: MORPHINE SULFATE 8 MG/ML INJ IV PUSH PRN ×3 (11:41→22:49)
[2017-02-21 12:00] VITALS: BP 141/57; PULSE 86; RESP 16; TEMP 98.6; O2SAT 92
[2017-02-21 12:00] LABS: AUTOMATED NEUTROPHIL # 8.3 TH/MM3 (1.8-7.7); BASOPHIL # 0.1 TH/MM3 (0-0.2); BASOPHIL % 1.4 % (0.0-2.0); EOSINOPHIL # 0.1 TH/MM3 (0-0.4); EOSINOPHIL % 0.7 % (0.0-4.0); HEMATOCRIT 37.6 % (39.0-51.0); HEMO FLAGS DIFF FINAL; LYMPH % 3.9 % (9.0-44.0); LYMPHOCYTE # 0.4 TH/MM3 (1.0-4.8); MEAN CELL VOLUME 86.5 FL (80.0-100.0); MEAN CORPUSCULAR HEMOGLOBIN 27.5 PG (27.0-34.0); MEAN CORPUSCULAR HGB CONC 31.8 % (32.0-36.0); MONO % 6.3 % (0.0-8.0); NEUT % 87.7 % (16.0-70.0); PLATELET COUNT 239 TH/MM3 (150-450); RED BLOOD COUNT 4.35 MIL/MM3 (4.50-5.90); WHITE BLOOD COUNT 9.4 TH/MM3 (4.0-11.0)
[2017-02-21 12:15] LABS: BICARBONATE 28.2 MEQ/L (21.0-32.0)
[2017-02-21 16:00] VITALS: BP 126/54; PULSE 92; RESP 18; TEMP 98.7; O2SAT 93
[2017-02-21] MEDS: D5-LR + KCL 20 MEQ INJ 1,000 ML IV SCH ×2 (17:26→17:37)
[2017-02-21 20:00] VITALS: BP 116/62; PULSE 83; RESP 17; TEMP 97.9; O2SAT 93
[2017-02-22] VITALS: BP 124/60; PULSE 78; RESP 17; TEMP 97; O2SAT 92
[2017-02-22] MEDS: D5-LR + KCL 20 MEQ INJ 1,000 ML IV SCH ×4 (01:30→19:58)
[2017-02-22] MEDS: MORPHINE SULFATE 8 MG/ML INJ IV PUSH PRN ×4 (05:55→19:56)
[2017-02-22 07:01] LABS: AUTOMATED NEUTROPHIL # 4.7 TH/MM3 (1.8-7.7); BASOPHIL % 0.7 % (0.0-2.0); EOSINOPHIL # 0.4 TH/MM3 (0-0.4); EOSINOPHIL % 6.9 % (0.0-4.0); HEMATOCRIT 36.3 % (39.0-51.0); HEMO FLAGS DIFF FINAL; LYMPH % 7.9 % (9.0-44.0); LYMPHOCYTE # 0.5 TH/MM3 (1.0-4.8); MEAN CELL VOLUME 87.9 FL (80.0-100.0); MEAN CORPUSCULAR HEMOGLOBIN 28.5 PG (27.0-34.0); MEAN CORPUSCULAR HGB CONC 32.4 % (32.0-36.0); MONO % 9.6 % (0.0-8.0); NEUT % 74.9 % (16.0-70.0); PLATELET COUNT 196 TH/MM3 (150-450); RED BLOOD COUNT 4.13 MIL/MM3 (4.50-5.90); WHITE BLOOD COUNT 6.3 TH/MM3 (4.0-11.0)
[2017-02-22 07:11] LABS: BICARBONATE 28.1 MEQ/L (21.0-32.0); POTASSIUM 3.6 MEQ/L (3.5-5.1)
[2017-02-22 08:00] VITALS: BP 120/60; PULSE 69; RESP 16; TEMP 98.5; O2SAT 96
[2017-02-22] MEDS: PANTOPRAZOLE SODIUM 40 MG VIAL IVP SCH (09:52)
[2017-02-22] MEDS: ALVIMOPAN 12 MG CAPSULE PO SCH ×2 (09:52→19:56)
[2017-02-22] MEDS: SODIUM CHLORIDE 0.9% FLUSH 10 ML FLUSH IV FLUSH SCH ×2 (09:52→20:04)
[2017-02-22 12:00] VITALS: BP 121/59; PULSE 61; RESP 16; TEMP 98.4; O2SAT 95
[2017-02-22 16:00] VITALS: BP 121/63; PULSE 67; RESP 14; TEMP 97.6; O2SAT 94
[2017-02-22 20:00] VITALS: BP 120/65; PULSE 68; RESP 17; TEMP 97.1; O2SAT 96
[2017-02-23] VITALS: BP 117/62; PULSE 62; RESP 17; TEMP 96.8; O2SAT 96
[2017-02-23] MEDS: MORPHINE SULFATE 8 MG/ML INJ IV PUSH PRN ×4 (03:09→20:32)
[2017-02-23] MEDS: D5-LR + KCL 20 MEQ INJ 1,000 ML IV SCH ×3 (03:17→16:17)
[2017-02-23 08:00] VITALS: BP 128/70; PULSE 68; RESP 18; TEMP 98.7; O2SAT 94
[2017-02-23] MEDS: SODIUM CHLORIDE 0.9% FLUSH 10 ML FLUSH IV FLUSH SCH ×2 (09:00→20:33)
[2017-02-23] MEDS: PANTOPRAZOLE SODIUM 40 MG VIAL IVP SCH (09:04)
[2017-02-23] MEDS: ALVIMOPAN 12 MG CAPSULE PO SCH ×2 (09:05→20:32)
[2017-02-23] MEDS ORDERED: BENZOCAINE 6 MG/MENTHOL 10 MG LOZENGE BUCCAL PRN (11:30)
[2017-02-23 12:00] VITALS: BP 131/64; PULSE 65; RESP 16; TEMP 97.1; O2SAT 94
[2017-02-23 16:00] VITALS: BP 115/61; PULSE 67; RESP 18; TEMP 97.7; O2SAT 93
[2017-02-23 20:00] VITALS: BP 105/58; PULSE 68; RESP 16; TEMP 99.3; O2SAT 95
[2017-02-23] MEDS: ONDANSETRON HCL 4 MG/2 ML VIAL IV PRN (20:32)
[2017-02-23] MEDS: METOCLOPRAMIDE HCL 10 MG/2 ML VIAL IVS PRN (23:52)
[2017-02-24 00:16] VITALS: BP 114/61; PULSE 72; RESP 16; TEMP 97.3; O2SAT 92
[2017-02-24] MEDS: MORPHINE SULFATE 8 MG/ML INJ IV PUSH PRN ×3 (00:35→13:15)
[2017-02-24] MEDS: D5-LR + KCL 20 MEQ INJ 1,000 ML IV SCH ×3 (00:36→17:07)
[2017-02-24] MEDS: ONDANSETRON HCL 4 MG/2 ML VIAL IV PRN ×3 (04:49→20:22)
[2017-02-24 06:53] LABS: AUTOMATED NEUTROPHIL # 8.6 TH/MM3 (1.8-7.7); BASOPHIL # 0.1 TH/MM3 (0-0.2); BASOPHIL % 0.5 % (0.0-2.0); EOSINOPHIL # 0.2 TH/MM3 (0-0.4); EOSINOPHIL % 1.8 % (0.0-4.0); HEMATOCRIT 36.2 % (39.0-51.0); HEMO FLAGS DIFF FINAL; LYMPH % 7.7 % (9.0-44.0); LYMPHOCYTE # 0.8 TH/MM3 (1.0-4.8); MEAN CELL VOLUME 88.4 FL (80.0-100.0); MEAN CORPUSCULAR HEMOGLOBIN 28.6 PG (27.0-34.0); MEAN CORPUSCULAR HGB CONC 32.4 % (32.0-36.0); MONO % 5.2 % (0.0-8.0); NEUT % 84.8 % (16.0-70.0); PLATELET COUNT 241 TH/MM3 (150-450); RED BLOOD COUNT 4.09 MIL/MM3 (4.50-5.90); RED CELL DISTRIBUTION WIDTH 15.6 % (11.6-17.2); WHITE BLOOD COUNT 10.2 TH/MM3 (4.0-11.0)
[2017-02-24 07:21] LABS: BICARBONATE 25.9 MEQ/L (21.0-32.0); POTASSIUM 3.7 MEQ/L (3.5-5.1)
[2017-02-24 08:00] VITALS: BP 125/64; PULSE 71; RESP 17; TEMP 98; O2SAT 95
[2017-02-24] MEDS: ALVIMOPAN 12 MG CAPSULE PO SCH ×2 (08:48→20:22)
[2017-02-24] MEDS: PANTOPRAZOLE SODIUM 40 MG VIAL IVP SCH (08:48)
[2017-02-24] MEDS: SODIUM CHLORIDE 0.9% FLUSH 10 ML FLUSH IV FLUSH SCH ×2 (08:48→21:00)
[2017-02-24 12:00] VITALS: BP 127/68; PULSE 74; RESP 17; TEMP 98.3; O2SAT 96
[2017-02-24 16:00] VITALS: BP 130/68; PULSE 81; RESP 16; TEMP 97.1; O2SAT 94
--- NOTE | 2017-02-24 17:22 | HHI.PR ---
Subjective Remarks C/O Nausea even with N/G with little output. + diarrheal stools. Nausea likely due to IV Morphine Objective Vital Signs Date Time Temp Pulse Resp B/P (MAP) Pulse Ox O2 Delivery O2 Flow Rate FiO2 02/24/17 16:00 97.1 81 16 130/68 (88) 94 02/24/17 13:44 17 02/24/17 12:00 98.3 74 17 127/68 (87) 96 02/24/17 08:00 98.0 71 17 125/64 (84) 95 02/24/17 00:16 97.3 72 16 114/61 (78) 92 02/23/17 20:00 99.3 68 16 105/58 (74) 95 I/O 02/23/17 02/23/17 02/23/17 02/24/17 02/24/17 02/24/17 07:00 15:00 23:00 07:00 15:00 23:00 Intake Total 1770 ml 1662 ml 1411 ml 287 ml 1000 ml Output Total 950 ml 850 ml 950 ml Balance 820 ml 812 ml 461 ml 287 ml 1000 ml Intake Oral 240 ml 360 ml IV Total 1530 ml 1302 ml 1411 ml 287 ml 1000 ml Output Urine Total 350 ml 600 ml 700 ml Gastric Drainage Total 600 ml 250 ml 250 ml # Voids 1 2 # Bowel Movements 1 3 Result Diagram: 02/24/1741902/24/17419 Objective Remarks VS-S Abd: flat,soft, wound clean I&Os and Labs-OK Assessment and Plan Assessment and Plan Stable POD#7. Nausea with resolving Ileus D/C N/G. NPO except meds. Ghassan Glover MD Feb 24, 2017 17:22
[2017-02-24] MEDS ORDERED: ACETAMINOPHEN/HYDROcodone 325 MG/10 MG TAB PO PRN (17:30)
[2017-02-24] MEDS ORDERED: ACETAMINOPHEN/HYDROcodone 325 MG/5 MG TAB PO PRN (17:30)
[2017-02-24 20:34] VITALS: BP 120/61; PULSE 76; RESP 16; TEMP 98.1; O2SAT 94
[2017-02-25] VITALS: BP 126/68; PULSE 73; RESP 20; TEMP 99.1; O2SAT 96
[2017-02-25] MEDS: METOCLOPRAMIDE HCL 10 MG/2 ML VIAL IVS PRN (02:15)
[2017-02-25 08:00] VITALS: BP 115/55; PULSE 67; RESP 17; TEMP 98.3; O2SAT 97
[2017-02-25] MEDS: PANTOPRAZOLE SODIUM 40 MG VIAL IVP SCH (08:21)
[2017-02-25] MEDS: D5-LR + KCL 20 MEQ INJ 1,000 ML IV SCH ×2 (08:22→17:25)
[2017-02-25 12:00] VITALS: BP 108/59; PULSE 61; RESP 16; TEMP 98; O2SAT 97
--- NOTE | 2017-02-25 13:51 | HHI.PR ---
Subjective Remarks Stooling. Pain less. Started PO Objective Vital Signs Date Time Temp Pulse Resp B/P (MAP) Pulse Ox O2 Delivery O2 Flow Rate FiO2 02/25/17 12:00 98.0 61 16 108/59 (75) 97 02/25/17 08:00 98.3 67 17 115/55 (75) 97 02/25/17 00:00 99.1 73 20 126/68 (87) 96 02/24/17 20:34 98.1 76 16 120/61 (80) 94 02/24/17 16:00 97.1 81 16 130/68 (88) 94 I/O 02/24/17 02/24/17 02/24/17 02/25/17 02/25/17 02/25/17 07:00 15:00 23:00 07:00 15:00 23:00 Intake Total 1411 ml 287 ml 1150 ml 0 ml Output Total 950 ml 200 ml 200 ml Balance 461 ml 287 ml 950 ml -200 ml Intake Oral 0 ml 0 ml IV Total 1411 ml 287 ml 1150 ml Output Urine Total 700 ml 200 ml Gastric Drainage Total 250 ml 200 ml # Voids 3 1 # Bowel Movements 3 1 1 Result Diagram: 02/24/17 04202/24/17 042 Objective Remarks VS-S Abd: flat,soft, wounds clean I&Os and Labs-OK Assessment and Plan Assessment and Plan Stable POD#8. Start FLD. Ambulate. Possible D/C tomorrow Ghassan Glover MD Feb 25, 2017 13:51
[2017-02-25 16:00] VITALS: BP 109/59; PULSE 63; RESP 17; TEMP 98.3; O2SAT 96
[2017-02-25] MEDS: SODIUM CHLORIDE 0.9% FLUSH 10 ML FLUSH IV FLUSH SCH ×2 (17:26→20:40)
[2017-02-25 20:00] VITALS: BP 103/59; PULSE 61; RESP 16; TEMP 98.8; O2SAT 97
[2017-02-26] VITALS: BP 118/60; PULSE 61; RESP 16; TEMP 98.6; O2SAT 98
[2017-02-26] MEDS: METOCLOPRAMIDE HCL 10 MG/2 ML VIAL IVS PRN (01:57)
[2017-02-26 08:00] VITALS: BP 115/63; PULSE 61; RESP 18; TEMP 98.5; O2SAT 98
[2017-02-26] MEDS: PANTOPRAZOLE SODIUM 40 MG VIAL IVP SCH (08:28)
[2017-02-26] MEDS: ONDANSETRON HCL 4 MG/2 ML VIAL IV PRN (08:28)
[2017-02-26] MEDS: SODIUM CHLORIDE 0.9% FLUSH 10 ML FLUSH IV FLUSH SCH (08:29)
[2017-02-26] MEDS: D5-LR + KCL 20 MEQ INJ 1,000 ML IV SCH (08:29)
[2017-02-26 12:00] VITALS: BP 124/67; PULSE 64; RESP 18; TEMP 97.6; O2SAT 98
--- NOTE | 2017-02-26 13:14 | HHI.DCPOC ---
Discharge Care Plan Diagnosis: (1) Colostomy closure Your Health Problems Are: Incision/Drains Appetite Changes Irregular Bowel Function Exercise Tolerance Goals to Promote Your Health * To prevent worsening of your condition and complications * To maintain your health at the optimal level Directions to Meet Your Goals Take your medications as prescribed Follow your dietary instruction Follow activity as directed Keep your appointments as scheduled Take your immunizations and boosters as scheduled If your symptoms worsen call your PCP, if no PCP go to Urgent Care Center or Emergency Room Smoking is Dangerous to Your Health. Avoid second hand smoke Call the 24-hour hour crisis hotline for domestic abuse at Ghassan Glover MD Feb 26, 2017 13:13
== END 2017-02-26 15:31 | disposition home or self-care (01) | DRG 330 ==
LOC: N07B 11:18 → HCIN 18:14 → N07A 02-18 15:51
PROVIDERS: ADMIT Colon & Rectal Surgery; ATTEND Colon & Rectal Surgery
PROC: 0DCE0ZZ Extirpation of Matter from Large Intestine, Open Approach (ICD-10-PCS; 2017-02-17)
PROC: 0DBN0ZZ Excision of Sigmoid Colon, Open Approach (ICD-10-PCS; principal; 2017-02-17 13:35)
DX: Z43.3 Encounter for attention to colostomy (principal); K56.7 Ileus, unspecified; K50.90 Crohn's disease, unspecified, without complications; R31.9 Hematuria, unspecified; K21.9 Gastro-esophageal reflux disease without esophagitis; Z85.72 Personal history of non-Hodgkin lymphomas; Z92.21 Personal history of antineoplastic chemotherapy; Z86.718 Personal history of other venous thrombosis and embolism
CPT/HCPCS: 74020; 76937; 80048; 85025; 86850; 86900; 86901; 88304; 94150; 94667; C9113; J0131; J0690; J1940; J2175; J2250; J2270; J2405; J2550; J2710; J2765; J3010; J3480; J7030; J7042; J7120

== ENCOUNTER → 2017-04-30 | Day surgery (SDC) | payer OTHER ==
[~2017-04-30] VITALS: Ht 190.5 cm; Wt 75.7 kg
[~2017-04-30] MED LIST changes: +ACETAMINOPHEN 1000 MG/100 ML 100 ML IV ONE; +BELLADONNA ALKALOIDS/OPIUM 60 MG SUPP RECTAL ONE; +CHLORHEXIDINE GLUCONATE 2 % 1 PACK (2 CLOTHS) TOPICAL PRN; +DEXAMETHASONE SOD PHOS 4 MG/ML VIAL IV ONE; +DO NOT ADM ANY ANTICOAGULANT DRUGS PRN; +GLYCOPYRROLATE 1 MG/5 ML SYRINGE IV PUSH ONE; +INSULIN HUMAN REGULAR 1,000 UNITS/10 ML VIAL SQ PRN; +IOHEXOL 350 MG/ML 50 ML BTL (for RAD DIAG) IVCONTRAST ONE; +LACTATED RINGER'S 1000 ML IV PRN; +LIDOCAINE HCL 1% PF 5 ML SYRINGE OTHER ONE; +METOPROLOL TARTRATE 25 MG TAB PO PRN; +MIDAZOLAM HCL 2 MG/2 ML VIAL IV ONE; +MORPHINE SULFATE 2 MG/ML INJ IV PUSH PRN; +NEOSTIGMINE 3 MG/3 ML SYR IV ONE; +ONDANSETRON HCL 4 MG/2 ML VIAL IV PUSH ONE; +ONDANSETRON HCL 4 MG/2 ML VIAL IV PUSH PRN; +POVIDONE IODINE 5% (ANTISEPSIS KIT) 4 APPLICATIONS EACH NARE PRN; +PROPOFOL 200 MG/20 ML AMP IV ONE; +ROCURONIUM INJ 50 MG/5 ML SYRINGE IV PUSH ONE; +SODIUM CHLORID 0.9% 500 ML IV PRN; +ceFAZolin 1,000 MG/NS 100 ML IV SCH; +ePHEDrine/NS 25 MG/5 ML SYR IV ONE; +oxyCODONE/ACETAMINOPHEN 5 MG/325 MG TAB PO PRN
[2017-04-30 09:24] LABS: AUTOMATED NEUTROPHIL # 4.8 TH/MM3 (1.8-7.7); BASOPHIL # 0.1 TH/MM3 (0-0.2); BASOPHIL % 0.9 % (0.0-2.0); EOSINOPHIL # 0.3 TH/MM3 (0-0.4); EOSINOPHIL % 4.5 % (0.0-4.0); HEMATOCRIT 40.7 % (39.0-51.0); HEMO FLAGS DIFF FINAL; LYMPHOCYTE # 0.9 TH/MM3 (1.0-4.8); MEAN CELL VOLUME 85.8 FL (80.0-100.0); MEAN CORPUSCULAR HGB CONC 32.6 % (32.0-36.0); MONO % 8.8 % (0.0-8.0); NEUT % 72.8 % (16.0-70.0); PLATELET COUNT 246 TH/MM3 (150-450); RED BLOOD COUNT 4.75 MIL/MM3 (4.50-5.90); WHITE BLOOD COUNT 6.6 TH/MM3 (4.0-11.0)
--- NOTE | 2017-04-30 14:00 | PD.OP ---
Operative Report Date of Surgery: Apr 30, 2017 Preoperative Diagnosis: Bladder tumor> 5 cm Postoperative Diagnosis: Same Procedure: Urethral dilatation, cystoscopy, transurethral resection of the bladder tumor with fulguration, right retrograde pyelogram with right double-J stent insertion Anesthesia: SAHRAA Surgeon: Sharan Santiago Nuclear Weapons Custodian(s): None Resident Surgeon: None Operation and Findings: 66-year-old male presented with gross hematuria and on cystoscopy was noted to have a bladder tumor greater than 5 cm on the right side of the bladder and near the right dome. Decision made for the patient go the operating room and undergo transurethral resection of a bladder tumor. Risk and benefits were discussed preoperatively and he was willing to proceed. She was brought to the operating room and identified by myself as Ketan Nunez. He was placed in the dorsal lithotomy position, prepped and draped in usual sterile fashion, received preprocedure antibiotics and general endotracheal tube anesthesia was administered. Initially I was unable to pass the cystoscope into the bladder and therefore urethral dilatation was performed. Using a 22 male sound and then increasing up to a 28 Iraqi sound urethral dilatation was performed. Then the cystoscope was inserted in the bladder leslie cystoscopy revealed bladder tumor around the bladder neck on the right side overlying the right ureteral orifice and some small tumor around the area of the dome all near the bladder neck. The Campos resectoscope was then inserted through the 24 sheath and using the loop cautery the tumor was resected. The tumor was resected in total however the right ureteral orifice was involved with the base of the tumor. The UO was initially resected and then reidentified. A 0.35 sensor wire was unable to be passed through the area of the ureteral orifice and up into the kidney. A 5 Iraqi open catheter was then inserted over the wire and retrograde Polygram was performed demonstrating good filling of the ureter and collecting system. The wire was then reinserted through the open-ended catheter and the catheter was then removed. Using the wire in place, a 6 Iraqi 26 cm right double-J stent was placed with good curl in the kidney and bladder. Using the rollerball, the tumor bed was then fulgurated for any areas of bleeding. Once hemostasis was obtained, the bladder was evacuated and all specimen was sent to pathology. A 20 Iraqi Baker catheter was inserted over a wire with 10 cc in the balloon. He will follow-up on Thursday to have the catheter removed and then in 2 weeks to have his right double-J stent removed followed by office cystoscopy in 6 weeks from today. Sharan Santiago DO Apr 30, 2017 14:00
[2017-04-30 15:39] VITALS: BP 149/74; PULSE 69; RESP 16; TEMP 98.4; O2SAT 99
== END | disposition home or self-care (01) ==
LOC: HSDC 08:11
PROVIDERS: ATTEND Urology
DX: C67.1 Malignant neoplasm of dome of bladder (principal); K21.0 Gastro-esophageal reflux disease with esophagitis; Z87.440 Personal history of urinary (tract) infections; Z85.72 Personal history of non-Hodgkin lymphomas; Z01.818 Encounter for other preprocedural examination
CPT/HCPCS: 00912; 52240; 85025; 88307; C1769; C2617; J0131; J0690; J7120; J1100; J2250; J2405; J2710; J3010

== ENCOUNTER → 2017-07-16 | Day surgery (SDC) | payer OTHER ==
[~2017-07-16] VITALS: Ht 188 cm; Wt 78.2 kg
[~2017-07-16] MED LIST changes: +BELLADONNA ALKALOIDS/OPIUM 60 MG SUPP RECTAL PRN; -IOHEXOL 350 MG/ML 50 ML BTL (for RAD DIAG) IVCONTRAST ONE; -MIDAZOLAM HCL 2 MG/2 ML VIAL IV ONE; +MIDAZOLAM HCL 2 MG/2 ML VIAL ONE; +MORPHINE SULFATE 2 MG/ML INJ IV PRN; -MORPHINE SULFATE 2 MG/ML INJ IV PUSH PRN; -NEOSTIGMINE 3 MG/3 ML SYR IV ONE; +NEOSTIGMINE 5 MG/5 ML SYRINGE IV PUSH ONE; +ONDANSETRON HCL 4 MG/2 ML VIAL IV ONE; -ONDANSETRON HCL 4 MG/2 ML VIAL IV PUSH ONE; +PHENYLEPH/NS 1000 MCG/10 ML SYR IV ONE; +SODIUM CHLORIDE 0.9% INJ 100 ML ONE; +TYLE325T PO; -TYLENOL PM PO; +ceFAZolin INJ 1,000 MG VIAL ONE; -ePHEDrine/NS 25 MG/5 ML SYR IV ONE
--- NOTE | 2017-07-16 16:43 | PD.OP ---
Operative Report Date of Surgery: Jul 16, 2017 Preoperative Diagnosis: Low-grade bladder cancer Postoperative Diagnosis: Same Procedure: Cystoscopy with multiple bladder biopsies of prior tumor site with fulguration Anesthesia: HARSH Surgeon: Sharan Santiago Paper Handler(s): None Resident Surgeon: None Operation and Findings: 66-year-old male status post TURBT revealing a history of low-grade bladder carcinoma. Patient underwent recent cystoscopy in the office demonstrating areas of erythema at the prior resection site. Decision made to bring the patient back to the operating room to undergo bladder biopsies and fulguration of the prior tumor site. Risk and benefits were discussed preoperatively and he is willing to proceed. Patient brought the operating room and identified by myself as Ketan Nunez. His placement dorsal lithotomy position, prepped very mu sterile fashion, received preprocedure antibiotics and General endotracheal tube anesthesia was administered. 22 Swedish scope was inserted in the bladder. Barbour cystoscopy demonstrated areas of erythema along the right lateral wall at the area of the prior tumor resection sites. On his initial TURBT, the right ureteral orifice was involved with tumor and the orifice appeared to be well- healed and was more lateral in location. Reflux was demonstrated from both ureteral orifices. Using the cold cut biopsy forceps presently 6 specimens were taken from the prior TURBT site. This area was then fulgurated with the Bugbee cautery. No other bladder tumors or areas of erythema were identified within the bladder. Hemostasis was obtained. The bladder was evacuated and he was awoken and transferred occurring stable condition. He'll follow-up in the office to undergo review of his pathology. If the pathology is positive, will recommend BCG treatment. Sharan Santiago DO Jul 16, 2017 16:43
[2017-07-16 18:34] VITALS: BP 115/65; PULSE 58; RESP 18; TEMP 97.3; O2SAT 97
== END | disposition home or self-care (01) ==
LOC: HSDC 10:52
PROVIDERS: ATTEND Urology
DX: C67.9 Malignant neoplasm of bladder, unspecified (principal); Z85.72 Personal history of non-Hodgkin lymphomas; Z92.21 Personal history of antineoplastic chemotherapy
CPT/HCPCS: 00910; 52214; 88305; J0131; J0690; J1100; J2250; J2370; J2405; J2710; J3010; 88307